=== PATIENT | female | born 1970 | race Caucasian/White ===

== ENCOUNTER 2020-01-17 22:05 | Emergency (ER) | payer MEDICAID ==
[~2020-01-17] VITALS: Ht 154.9 cm; Wt 56.7 kg
[~2020-01-17 22:05] MED LIST: ADVAIR HFA115 MCG/21; AZITHROMYCIN 2250 MG PO; ESTRADIOL 1 MG T1 M1 PO; HYDROCODON-ACE1 EAC7 PO; HYDROXYZINE PAM25 M1 PO; IBUPROFEN 800800 MG PO; KEPPRA 500 MG500 M1 PO; MOBIC15 MG PO; NEURONTIN 300300 M1; OXECTA7.5 MG; PANTOPRAZOLE SO40 M1; PAROXETINE HCL25 MG PO; PHENERGAN 25 MG25 MG PO; PROAIR HFA8.5 GM; SINGULAIR 10 MG10 M1 PO; TESSALON PERLE100 MG PO; TOPAMAX 25 MG T25 M1 PO; ZANAFLEX4 MG PO; ZOFRAN ODT4 MG PO
[2020-01-17 22:52] LABS: ABSOLUTE BASOPHILS 0.1 thou/uL (0.0-0.2); ABSOLUTE EOSINOPHILS 0.1 thou/uL (0.0-0.7); ABSOLUTE LYMPHOCYTES 3.9 thou/uL (0.8-5.3); ABSOLUTE MONOCYTES 1.3 thou/uL (0.0-1.2); ABSOLUTE NEUTROPHILS 4.9 thou/uL (1.6-8.1); BASOPHILS 0.7 %; EOSINOPHILS 0.6 %; HEMATOCRIT 43.6 % (37.0-47.0); HEMOGLOBIN 15.2 gm/dL (12.0-15.0); LYMPHOCYTES 37.6 %; MCH 32.6 pg (26.0-34.0); MCHC 34.8 g/dL (28.0-37.0); MCV 93.8 fL (80.0-100.0); MPV 7.1 fl. (7.2-11.1); NUCLEATED RBCS 0 /100WBC; PLATELET COUNT* 295 thou/uL (150-400); POLYS 48.1 %; RBC 4.65 mil/uL (4.20-5.00); RDW-CV 13.9 % (10.5-14.5); WBC 10.3 thou/uL (4.0-11.0)
[2020-01-17 22:59] LABS: CALCIUM 9.1 mg/dL (8.5-10.1); POTASSIUM 3.2 mmol/L (3.5-5.1)
[2020-01-18 00:09] LABS: URINE BILIRUBIN NEGATIVE (Negative); URINE BLOOD 1+ (Negative); URINE CLARITY CLEAR; URINE COLOR YELLOW; URINE GLUCOSE-RANDOM NEGATIVE (Negative); URINE KETONES 1+ (Negative); URINE LEUKOCYTES-REFLEX 1+ (Negative); URINE NITRITE-REFLEX NEGATIVE (Negative); URINE PROTEIN NEGATIVE (Negative); URINE SPECIFIC GRAVITY 1.025 (1.005-1.030); URINE UROBILINOGEN 0.2 E.U./dl (0.2-1.0)
[2020-01-18 00:17] LABS: AMP/METHAMP POSITIVE (Negative); BARBITURATES Negative (Negative); BENZODIAZEPINES Negative (Negative); COCAINE Negative (Negative); METHADONE Negative (Negative); OPIATES Negative (Negative); PCP Negative (Negative); THC POSITIVE (Negative)
[2020-01-18 00:32] LABS: BACTERIA-REFLEX >30 Many /HPF (None Seen); CRYSTALS None Seen /LPF (None Seen); FINE GRANULAR CASTS 0-3 Few /LPF (None Seen); HYALINE CASTS 0-3 Few /LPF (None Seen); MUCUS 4-6 Moderate strn/LPF (None Seen); SQUAMOUS 0-3 Few /LPF (0-3); URINE WBC-REFLEX >25 Many /HPF (0-5); WBC CLUMPS Moderate (None Seen)
[2020-01-18 05:12] VITALS: BP 97/71
--- NOTE | 2020-01-22 12:22 | EKG ---
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1970 Requested By: Ilda Shaffer Order Number: [id number] MD: Ari Galeana Measurements Intervals [place] Rate: 84 P: 20 NC: 146 QRS: 41 QRSD: 100 T: 27 QT: 413 QTc: 489 Interpretive Statements Sinus rhythm artifact noted Atrial premature complex ST elev, probable normal early repol pattern Borderline prolonged QT interval Compared to ECG 03/31/2015 08:37:01 Atrial premature complex(es) now present Sinus bradycardia no longer present Electronically Signed On 01-18-2020 10:59:44 CDT by Ari Galeana [email or web address] <ELECTRONICALLY SIGNED> By: Ari Galeana MD, [facility] 01/18/20 1059 08 08 Ari Galeana MD, [facility] /EPI
== END 2020-01-18 05:12 | disposition home or self-care (01) ==
LOC: M.ERS 22:05
PROVIDERS: Emergency Medicine
DX: F15.10 Other stimulant abuse, uncomplicated (principal); R41.82 Altered mental status, unspecified; K21.9 Gastro-esophageal reflux disease without esophagitis; G89.29 Other chronic pain; G62.9 Polyneuropathy, unspecified; F17.210 Nicotine dependence, cigarettes, uncomplicated; Z87.442 Personal history of urinary calculi

== ENCOUNTER 2020-08-26 15:36 | Inpatient (IN) | payer MEDICAID ==
[~2020-08-26] VITALS: Ht 157.5 cm; Wt 55.8 kg
[2020-08-26 15:49] VITALS: BP 100/80
[2020-08-26] MEDS ORDERED: CYMBALTA20 MG PO (15:52)
[2020-08-26] MEDS ORDERED: MACROBID 100 M100 MG PO (15:52)
[2020-08-26 16:11] LABS: ABSOLUTE MONOCYTES 1.7 thou/uL (0.0-1.2); BASOPHILS 0.1 %; EOSINOPHILS 0.1 %; HEMATOCRIT 37.4 % (37.0-47.0); HEMOGLOBIN 12.4 gm/dL (12.0-15.0); LYMPHOCYTES 5.7 %; MCH 31.1 pg (26.0-34.0); MCHC 33.3 g/dL (28.0-37.0); MCV 93.6 fL (80.0-100.0); MONOCYTES 9.6 %; MPV 6.1 fl. (7.2-11.1); NUCLEATED RBCS 0 /100WBC; PLATELET COUNT* 301 thou/uL (150-400); POLYS 84.5 %; RBC 3.99 mil/uL (4.20-5.00); RDW-CV 14.2 % (10.5-14.5); WBC 17.7 thou/uL (4.0-11.0)
[2020-08-26 16:19] LABS: CALCIUM 8.3 mg/dL (8.5-10.1); CREATININE 0.9 mg/dL (0.6-1.3); POTASSIUM 3.7 mmol/L (3.5-5.1)
[2020-08-26 16:23] LABS: ALBUMIN 2.7 g/dL (3.4-5.0); TOTAL BILIRUBIN 0.4 mg/dL (<0.1-1.0); TOTAL PROTEIN 7.1 g/dL (6.4-8.2)
[2020-08-26 16:29] LABS: INFLUENZA A ANTIGEN Negative (Negative); INFLUENZA B ANTIGEN Negative (Negative)
--- NOTE | 2020-08-26 17:06 | EKG ---
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: : 1970 Requested By: Maura Bautista Order Number: [id number] MD: Eddie Valencia Measurements Intervals [place] Rate: 94 P: 27 WA: 129 QRS: 49 QRSD: 84 T: 45 QT: 350 QTc: 438 Interpretive Statements Sinus rhythm Abnormal R-wave progression, early transition Compared to ECG 01/17/2020 22:09:45 Atrial premature complex(es) no longer present ST (T wave) deviation no longer present Electronically Signed On 08-26-2020 17:05:50 FRONT END DEVELOPER by Eddie Valencia [email or web address] <ELECTRONICALLY SIGNED> By: Eddie Valencia MD, FACC 08/26/20 1705 1607 1607 Eddie Valencia MD, FAC /EPI
[2020-08-26 18:34] LABS: AMP/METHAMP Negative (Negative); BARBITURATES Negative (Negative); BENZODIAZEPINES Negative (Negative); COCAINE Negative (Negative); METHADONE Negative (Negative); OPIATES Negative (Negative); PCP Negative (Negative); THC POSITIVE (Negative)
[2020-08-26 18:56] LABS: URINE BILIRUBIN NEGATIVE (Negative); URINE BLOOD 1+ (Negative); URINE COLOR YELLOW; URINE GLUCOSE-RANDOM NEGATIVE (Negative); URINE KETONES NEGATIVE (Negative); URINE NITRITE-REFLEX NEGATIVE (Negative); URINE PROTEIN 2+ (Negative); URINE UROBILINOGEN 0.2 E.U./dl (0.2-1.0)
[2020-08-26 18:57] LABS: URINE CLARITY HAZY; URINE LEUKOCYTES-REFLEX 3+ (Negative)
[2020-08-26 19:06] LABS: SQUAMOUS 0-3 Few /LPF (0-3); URINE RBC 3-10 Few /HPF (0-2); URINE WBC-REFLEX >25 Many /HPF (0-5)
[2020-08-26 19:07] LABS: BACTERIA-REFLEX 1-9 Few /HPF (None Seen); CASTS None Seen /LPF (None Seen); CRYSTALS None Seen /LPF (None Seen)
[2020-08-26 20:40] VITALS: BP 119/76
[2020-08-26 20:44] VITALS: BP 126/86
[2020-08-27 04:26] LABS: HEMATOCRIT 33.1 % (37.0-47.0); HEMOGLOBIN 10.9 gm/dL (12.0-15.0); MCH 31.5 pg (26.0-34.0); MCHC 32.9 g/dL (28.0-37.0); MCV 95.7 fL (80.0-100.0); MPV 6.6 fl. (7.2-11.1); RBC 3.46 mil/uL (4.20-5.00); WBC 10.7 thou/uL (4.0-11.0)
[2020-08-27 04:46] LABS: CALCIUM 7.8 mg/dL (8.5-10.1); CREATININE 0.8 mg/dL (0.6-1.3); MAGNESIUM 2.2 mg/dL (1.8-2.4); POTASSIUM 3.1 mmol/L (3.5-5.1)
--- NOTE | 2020-08-27 06:31 | NUR ---
PT ALERT AND ORIENTED. PAIN STILL NOT MANAGED. DR TORREZ PAGED AT 0620 REQUESTING MORE PAIN MEDICATION. SHE IS ANXIOUS AND TEARY. SHE IS STANDBY TO THE RESTROOM. ROOM AIR, ALERT AND ORIENTED. CLEAR LIQUIDS TOLERATED WELL. NO REPORTS OF NAUSEA OR VOMITING.
[2020-08-27 08:15] VITALS: BP 100/53
[2020-08-27 16:00] VITALS: BP 104/60
--- NOTE | 2020-08-27 16:26 | NUR ---
PATIENT ALERT AND ORIENTED X 4. VITAL SIGNS STABLE ON ROOM AIR. UP INDEPENDENTLY AND AMBULATING IN ROOM. IV PATENT AND SALINE LOCKED, PER DR. TORREZ. PAIN BEING MANAGED WITH IV MEDICATION. DENIES NAUSEA AT THIS TIME. TOLERATING REGULAR DIET. SEIZURE PRECAUTIONS IN PLACE. HOURLY ROUNDS MAINTAINED THROUGHOUT THE SHIFT. CALL LIGHT WITHIN REACH. NURSING WILL CONTINUE TO MONITOR.
[2020-08-27 20:04] VITALS: BP 94/54
[2020-08-28 04:14] LABS: HEMATOCRIT 28.6 % (37.0-47.0); HEMOGLOBIN 9.5 gm/dL (12.0-15.0); MCH 31.7 pg (26.0-34.0); MCHC 33.3 g/dL (28.0-37.0); MCV 95.2 fL (80.0-100.0); MPV 6.7 fl. (7.2-11.1); RBC 3.01 mil/uL (4.20-5.00); RDW-CV 14.4 % (10.5-14.5); WBC 5.4 thou/uL (4.0-11.0)
[2020-08-28 04:27] LABS: CALCIUM 7.6 mg/dL (8.5-10.1); CREATININE 0.7 mg/dL (0.6-1.3); MAGNESIUM 2.2 mg/dL (1.8-2.4); POTASSIUM 3.7 mmol/L (3.5-5.1); TOTAL BILIRUBIN 0.2 mg/dL (<0.1-1.0); TOTAL PROTEIN 5.6 g/dL (6.4-8.2)
[2020-08-28 05:36] LABS: GLYCOHEMOGLOBIN (HGB A1C) 5.8 % (4.8-5.6)
--- NOTE | 2020-08-28 06:05 | NUR ---
PATIENT SLEPT PART OF THE NIGHT. PATIENT HAD A TEMP AT BEGINNING OF SHIFT. TYLENOL HAD ALREADY BEEN GIVEN. HOOKED PATIENT BACK UP TO IV FLUIDS AT 100 ML/HR. PATIENT WAS GIVEN TORADOL ONCE WITH GOOD PAIN RELIEF. WILL CONTINUE TO MONITOR.
[2020-08-28 07:30] VITALS: BP 97/59
[2020-08-28] MEDS ORDERED: KEFLEX500 M1 PO (08:57)
[2020-08-28 11:34] VITALS: BP 97/59
[2020-08-28 12:41] VITALS: BP 97/59
--- NOTE | 2020-08-28 12:41 | NUR ---
IV DC'D WITH CATH CANNULA INTACT. PRESSURE APPLIED UNTIL BLEEDING CEASED AND COTTON BALL AND TAPE APPLIED. DISCHARGED TO HOME WITH MOTHER. TAKEN OUT VIA W/C. ALL BELONGINGS SENT WITH HER. PATIENT VERBALIZED UNDERSTANDING TO ALL DISCHARGE INSTRUCTIONS.
== END 2020-08-28 12:30 | disposition home or self-care (01) | DRG 872 ==
LOC: M.ERS 15:36 → M.TBA-ER 17:57 → M.3W 20:32
PROVIDERS: Physician Assistant; ADMIT Internal Medicine; ATTEND Internal Medicine
DX: A41.9 Sepsis, unspecified organism (principal); N12 Tubulo-interstitial nephritis, not specified as acute or chronic; F41.9 Anxiety disorder, unspecified; G40.909 Epilepsy, unspecified, not intractable, without status epilepticus; G89.29 Other chronic pain; M54.9 Dorsalgia, unspecified; J45.909 Unspecified asthma, uncomplicated; K21.9 Gastro-esophageal reflux disease without esophagitis; G62.9 Polyneuropathy, unspecified; F17.200 Nicotine dependence, unspecified, uncomplicated; I95.9 Hypotension, unspecified; R73.9 Hyperglycemia, unspecified; Z20.828 Contact with and (suspected) exposure to other viral communicable diseases; Z79.899 Other long term (current) drug therapy

== ENCOUNTER 2021-04-14 12:41 | Emergency (ER) | payer MEDICAID ==
[~2021-04-14] VITALS: Ht 157.4 cm; Wt 59.0 kg
[~2021-04-14 12:41] MED LIST changes: +CYMBALTA20 MG PO; +KEFLEX500 M1 PO; +MACROBID 100 M100 MG PO
[2021-04-14] MEDS ORDERED: VALIUM2 MG PO (13:01)
[2021-04-14] MEDS ORDERED: BACLOFEN5 MG PO (13:01)
[2021-04-14 14:54] VITALS: BP 120/81
== END 2021-04-14 14:54 | disposition left against medical advice (07) ==
LOC: M.ERS 12:41
DX: Z53.21 Procedure and treatment not carried out due to patient leaving prior to being seen by health care provider (principal)